=== PATIENT | female | born 1955 | race Caucasian/White ===

== ENCOUNTER 2018-03-24 08:27 | Outpatient (RCR) | payer BC ==
[2017-12-31 09:07] VITALS: BP 130/89
[2017-12-31 09:21] LABS: PLATELET COUNT, AUTOMATED 347 K/uL (150-450)
[2018-03-18 08:53] VITALS: BP 125/78
[2018-03-18 09:07] LABS: PLATELET COUNT, AUTOMATED 297 K/uL (150-450)
[~2018-03-24 08:27] MED LIST: ACET-1935 PO; ALP25 PO; ALPR-429 PO; AMLO-101 PO; Antidepressant PO; BUP150 PO; CLO1 PO; CYAN100T31 PO; CYAN20004 SL; CYAN50TA3 PO; DICL-195 PO; DIP25 PO; DUL30 PO; ESCI20TA38 PO; ESCI20TA8; ESTR0.4513 PO; ESTR0.62 PO; FERR220S20 PO; FIO PO; FLINTSTONE PO; FLU20 PO; FLUO40CA76 PO; GABA-547 PO; HYDR25CA13 PO; IBU800 PO; IRON50TA PO; LEVO1TAB31 PO; LORA-630; LOSA50TA72 PO; LUNESTA; MIL50PT PO; MULT-1032 PO; MULT-885 PO; OMEG-84 PO; PER PO; PRE50 PO; PRED20TA6; PRED20TA6 PO; PREG75CA61 PO; PROVERA; TIZ4 PO; TRAM-627 PO; TRAZ-133 PO; [UNRECOGNIZED DRUG - CODE] PO; [UNRECOGNIZED DRUG - CODE] PO
[2018-03-24 08:31] VITALS: BP 127/86
--- NOTE | 2018-03-25 18:25 | ONCOLOGY FOLLOW UP NOTE ---
EVENT DATE: March 24, 2018 CHIEF COMPLAINT/REASON FOR VISIT Ms. Caban is a pleasant 62-year-old female with iron deficiency anemia here for followup. HISTORY OF PRESENT ILLNESS Tylor returns. She does have moderate fatigue, but is otherwise well. Her ferritin continues to be normal at 40 with no abnormalities with the TIBC. This is very encouraging and indicates that her body is satisfied with the level of iron. Her B12 has been acceptable as well. She has worked with Counseling and 2016 was an extremely challenging time with her sister passing away from schizophrenia. She is having stressors in life as well. PAST MEDICAL AND SURGICAL HISTORY 1. Hypertension. 2. Obesity status post gastric bypass surgery. 3. 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 4. Iron deficiency anemia. 5. History of psychiatric disorder, currently under control. FAMILY HISTORY Remarkable for renal cell carcinoma in her father, psychiatric disease with anxiety in the family as well. SOCIAL HISTORY The patient works at a nearby [employer], is , but presented by herself today. REVIEW OF SYSTEMS CONSTITUTIONAL: No fevers, chills. Positive fatigue. Poor sleep. HEENT: No headache, vision changes. CARDIOVASCULAR: No chest pain, edema. RESPIRATORY: No shortness of breath, wheeze, cough. GASTROINTESTINAL: No nausea, vomiting. GENITOURINARY: No dysuria or hematuria. MUSCULOSKELETAL: No weakness, joint pain. PSYCHIATRIC: Chronic anxiety. SKIN: No new issues. ENDOCRINE: No heat or cold intolerance. PHYSICAL EXAMINATION VITAL SIGNS: Blood pressure 177/86, pulse 66, respiratory rate 16, temperature 98.2 Fahrenheit, oxygen saturation 90% on room air. Pain 6/10, fatigue 5/10. GENERAL: In stable condition, resting comfortably in the chair. HEENT: Normocephalic, atraumatic. EXTREMITIES: No clubbing, cyanosis or edema. PSYCHIATRIC: Normal mood and affect. We had a very pleasant conversation today. Remainder of physical exam deferred today to amount of time spent in counseling and coordination of care. IMPRESSION AND PLAN Ms. Caban a pleasant female with the followin. Iron deficiency anemia secondary to poor absorption related to gastric bypass surgery. She does not require IV iron at this time and she is getting some in her diet. 2. Malabsorption of iron due to the above. 3. Sleep disordered breathing and high anxiety. 4. History of anxiety. She is doing actually well right now. Would recommend continuing counseling. 5. History of gastric bypass. We will need to watch B12. We will check this again at the next visit. I answered all of her questions today. Billing Return visit level 3. Total time 20 minutes, counseling time 15. MTDD
== END 2018-03-27 ==
LOC: ONC 08:27
PROVIDERS: ATTEND Internal Medicine
DX: D50.9 Iron deficiency anemia, unspecified (principal); K90.9 Intestinal malabsorption, unspecified; R53.83 Other fatigue; Z98.84 Bariatric surgery status
CPT/HCPCS: 36415; 82040; 82247; 82310; 82374; 82435; 82565; 82728; 82947; 83540; 83550; 84075; 84132; 84155; 84295; 84450; 84460; 84520; 85025; 99212

== ENCOUNTER 2018-05-15 00:58 | Day surgery (SDC) | payer BC ==
[~2018-05-15] VITALS: Ht 177.8 cm; Wt 108.4 kg
[~2018-05-15 00:58] MED LIST changes: +CYAN25004 PO; +MULT-1335 PO
[2018-05-15] MEDS ORDERED: LIDOCAINE MPF 1% 5 ML VIAL ONE (08:21)
[2018-05-15] MEDS ORDERED: PROPOFOL EMUL(*) 10MG/ML 20 ML 40 ML ONE (08:21)
[2018-05-15 08:29] VITALS: BP 139/93
[2018-05-15] MEDS ORDERED: NORMOSOL R SOLN(*) 1000 ML BAG 1,000 ML IV PRN (09:00)
[2018-05-15] MEDS ORDERED: LIDOCAINE/SOD BICARB 8.4% SYR ID ONE (09:00)
[2018-05-15 10:22] VITALS: BP 119/80
[2018-05-15 10:37] VITALS: BP 126/76
[2018-05-15 10:57] VITALS: BP 140/85
[2018-05-15 10:58] VITALS: BP 135/79
== END 2018-05-15 11:12 | disposition home or self-care (01) ==
LOC: OR 00:58
PROVIDERS: ATTEND Family Medicine
DX: Z12.11 Encounter for screening for malignant neoplasm of colon (principal); I10 Essential (primary) hypertension; G47.33 Obstructive sleep apnea (adult) (pediatric); K58.9 Irritable bowel syndrome, unspecified; M79.7 Fibromyalgia
CPT/HCPCS: 00812; 45378; J2001; J2704

== ENCOUNTER 2018-06-25 16:30 | Emergency (ER) | payer BC ==
[2018-06-25] MEDS ORDERED: cloNIDine HCL 0.1 MG TAB PO ONE (16:45)
--- NOTE | 2018-06-25 16:52 | ER Report ---
History and Physical Time Seen By MD: 16:45 HPI/ROS CHIEF COMPLAINT: Fatigue HISTORY OF PRESENT ILLNESS: 62-year-old female frequent visitor to the emergency department comes in with general fatigue she believed that she had carbon monoxide exposure secondary to a new heater being placed in her home however the EMS evaluation of the portal carbon monoxide shows 0 level that she' s good general fatigue and malaise she has a history of chronic fatigue has a history of fibromyalgia and he'll general nonspecific complaints history of system by mouth well low-energy no pain focal localized no head or neck trauma denies any loss of consciousness denies any neurological deficits or additional complaints noted patient has baseline history also some mild exertional dyspnea otherwise no other complaints noted REVIEW OF SYSTEMS: Respiratory: No cough, no dyspnea. Cardiovascular: No chest pain, no palpitations. Gastrointestinal: No vomiting, no abdominal pain. Musculoskeletal: No back pain. Remainder of the 14 system rev: Yes Allergies: Coded Allergies: No Known Allergies (Verified Allergy, Mild, 06/10/17) Home Meds Active Scripts Amlodipine Besylate (NORVASC) 5 Mg Tablet, 1 TAB PO QDAY for hypertension, #30 TAB Prov:SHELBY RIDLEY REPAIR TECH-BC, ONC 09/11/17 Reported Medications Cyanocobalamin (Vitamin B-12) (Vitamin B12) 2,500 Mcg Tablet, 2000 MG PO 05/09/18 Multivitamin With Minerals (MULTIPLE VITAMIN) 1 Each Tablet, 1 EACH PO, TAB 05/09/18 Escitalopram Oxalate (LEXAPRO) 20 Mg Tablet, 20 MG PO QDAY, TAB 01/24/17 Losartan Potassium (LOSARTAN POTASSIUM) 50 Mg Tablet, 100 MG PO DAILY 09/26/14 Gabapentin (GABAPENTIN) 100 Mg Capsule, 600 MG PO BID, CAPSULE 08/25/14 Bupropion Hcl (WELLBUTRIN-SR (OR EQUIV)) 150 Mg Tabcr, 150 MG PO BID, #30 02/15/12 Trazodone Hcl (Desyrel) 100 Mg Tablet, 150 MG PO QHS, #30 0 Refills 12/04/09 Reviewed Nurses Notes: Yes Old Medical Records Reviewed: Yes Hx Smoking: No Smoking Status: Never Smoker Hx Substance Use Disorder: Yes Hx Alcohol Use: Yes Constitutional Vital Sign - Last 24 Hours 06/25/18 16:45 Temp 97.2 Pulse 66 Resp 20 B/P (MAP) 155/115 Pulse Ox 94 O2 Delivery Room Air Physical Exam General Appearance: The patient is alert, has no immediate need for airway protection and no current signs of toxicity. [ ] Eyes: Pupils equal and round no injection. Respiratory: Chest is non tender, lungs are clear to auscultation. Cardiac: regular rate and rhythm [ ] Gastrointestinal: Abdomen is soft and non tender, no masses, bowel sounds normal. Musculoskeletal: Neck: Neck is supple and non tender. Extremities have full range of motion and are non tender. Skin: No rashes or lesions. [ ] DIFFERENTIAL DIAGNOSIS: After history and physical exam differential diagnosis was considered for general fatigue malaise hypertension Medical Decision Making Data Points Result Diagram: 06/25/18 1643 06/25/18 1643 Laboratory Hematology Test 06/25/18 16:43 Red Blood Count 4.30 M/uL (4.17-5.56) Mean Corpuscular Volume 94.7 fL (80.0-96.0) Mean Corpuscular Hemoglobin 32.6 pg (26.0-33.0) Mean Corpuscular Hemoglobin Concent 34.4 g/dL (32.0-36.0) Red Cell Distribution Width 13.1 % (11.5-14.5) Mean Platelet Volume 6.8 fL (7.2-11.1) Neutrophils (%) (Auto) 62.8 % (39.4-72.5) Lymphocytes (%) (Auto) 27.8 % (17.6-49.6) Monocytes (%) (Auto) 7.4 % (4.1-12.4) Eosinophils (%) (Auto) 1.1 % (0.4-6.7) Basophils (%) (Auto) 0.9 % (0.3-1.4) Nucleated RBC Relative Count (auto) 0.0 /100WBC Neutrophils # (Auto) 4.6 K/uL (2.0-7.4) Lymphocytes # (Auto) 2.0 K/uL (1.3-3.6) Monocytes # (Auto) 0.5 K/uL (0.3-1.0) Eosinophils # (Auto) 0.1 K/uL (0.0-0.5) Basophils # (Auto) 0.1 K/uL (0.0-0.1) Nucleated RBC Absolute Count (auto) 0.00 K/uL D-Dimer Quantitative (PE/DVT) 0.40 ug/ml (0-0.50) Sodium Level 130 mmol/L (137-145) Potassium Level 4.1 mmol/L (3.5-5.0) Chloride Level 98 mmol/L (98-107) Carbon Dioxide Level 24 mmol/L (22-31) Blood Urea Nitrogen 19 mg/dl (7-18) Creatinine 1.30 mg/dl (0.52-1.04) Glomerular Filtration Rate Calc 41.8 Random Glucose 120 mg/dl (75-110) Calcium Level 8.7 mg/dl (8.4-10.2) Total Bilirubin 0.3 mg/dl (0.2-1.3) Aspartate Amino Transf (AST/SGOT) 30 U/L (0-35) Alanine Aminotransferase (ALT/SGPT) 22 U/L (0-56) Alkaline Phosphatase 55 U/L (0-126) Troponin I < 0.012 ng/ml B-Type Natriuretic Peptide 59 pg/ml (0-100) Total Protein 6.6 g/dl (6.3-8.2) Albumin 3.9 g/dl (3.5-5.0) Chemistry Test 06/25/18 16:43 White Blood Count 7.3 k/uL (4.5-11.0) Red Blood Count 4.30 M/uL (4.17-5.56) Hemoglobin 14.0 g/dL (12.0-16.0) Hematocrit 40.7 % (34.0-47.0) Mean Corpuscular Volume 94.7 fL (80.0-96.0) Mean Corpuscular Hemoglobin 32.6 pg (26.0-33.0) Mean Corpuscular Hemoglobin Concent 34.4 g/dL (32.0-36.0) Red Cell Distribution Width 13.1 % (11.5-14.5) Platelet Count 348 K/uL (150-450) Mean Platelet Volume 6.8 fL (7.2-11.1) Neutrophils (%) (Auto) 62.8 % (39.4-72.5) Lymphocytes (%) (Auto) 27.8 % (17.6-49.6) Monocytes (%) (Auto) 7.4 % (4.1-12.4) Eosinophils (%) (Auto) 1.1 % (0.4-6.7) Basophils (%) (Auto) 0.9 % (0.3-1.4) Nucleated RBC Relative Count (auto) 0.0 /100WBC Neutrophils # (Auto) 4.6 K/uL (2.0-7.4) Lymphocytes # (Auto) 2.0 K/uL (1.3-3.6) Monocytes # (Auto) 0.5 K/uL (0.3-1.0) Eosinophils # (Auto) 0.1 K/uL (0.0-0.5) Basophils # (Auto) 0.1 K/uL (0.0-0.1) Nucleated RBC Absolute Count (auto) 0.00 K/uL D-Dimer Quantitative (PE/DVT) 0.40 ug/ml (0-0.50) Glomerular Filtration Rate Calc 41.8 Calcium Level 8.7 mg/dl (8.4-10.2) Total Bilirubin 0.3 mg/dl (0.2-1.3) Aspartate Amino Transf (AST/SGOT) 30 U/L (0-35) Alanine Aminotransferase (ALT/SGPT) 22 U/L (0-56) Alkaline Phosphatase 55 U/L (0-126) Troponin I < 0.012 ng/ml B-Type Natriuretic Peptide 59 pg/ml (0-100) Total Protein 6.6 g/dl (6.3-8.2) Albumin 3.9 g/dl (3.5-5.0) Coagulation Test 06/25/18 16:43 D-Dimer Quantitative (PE/DVT) 0.40 ug/ml ED Course/Re-evaluation ED Course ED clinical course 8-year-old female who was under the impression she may have carbon monoxide poisoning this level was 0 respiratory workup was negative she has had general fatigue malaise nothing came up on her workup EKG chest x-ray Baseline labs cardiac markers respiratory markers all which were negative diagnosis will be Patik Decision to Disposition Date: Jun 25, 2018 Decision to Disposition Time: 17:39 Depart Departure Latest Vital Signs Vital Signs Date Time Temp Pulse Resp B/P (MAP) Pulse Ox O2 Delivery O2 Flow Rate FiO2 06/25/18 16:45 97.2 66 20 155/115 94 Room Air Impression: Primary Impression: Fatigue Condition: Improved Disposition: HOME OR SELF-CARE Referrals: CHICHI WISDOM MD (PCP) 5 Days Patient Instructions: Fatigue (DC) ANGELIA AUGUSTINE MD Jun 25, 2018 16:52
[2018-06-25 16:56] LABS: PLATELET COUNT, AUTOMATED 348 K/uL (150-450)
--- NOTE | 2018-06-25 17:02 | EKG ---
FACILITY: [facility] [place]IENT NAME: LON RICHARD : [id number] MR: [id number] V: [id number] EXAM DATE: ORDERING PHYSICIAN: ANGELIA AUGUSTINE TECHNOLOGIST: Test Reason : SOB Blood Pressure : / mmHG Vent. Rate : 063 BPM Atrial Rate : 063 BPM P-R Int : 174 ms QRS Dur : 084 ms QT Int : 414 ms P-R-T Axes : 041 007 045 degrees QTc Int : 423 ms Sinus rhythm Borderline left axis Nonspecific ST findings When compared with ECG of 25-JUN-2016 10:50, No significant change was found Confirmed by FELISHA ARRIAGA ([id number]) on 06/25/2018 5:21:16 PM Referred By: Confirmed By:FELISHA ARRIAGA
[2018-06-25 17:30] VITALS: BP 135/91
--- NOTE | 2018-06-25 17:36 | RADIOLOGY IMAGING REPORT ---
FACILITY: [facility] PATIENT NAME: Tylor Caban : 1955 MR: [id number] V: [id number] EXAM DATE: ORDERING PHYSICIAN: ANGELIA AUGUSTINE TECHNOLOGIST: Location: [facility] - [place] Patient: Tylor Caban : 1955 Visit/Account:[id number] Date of Sevice: 06/25/2018 2 VIEWS CHEST INDICATION: Shortness of breath. COMPARISON: 09/26/2014. FINDINGS: Cardiomediastinal silhouette and pulmonary vessels within normal limits. There is no focal infiltrate or lobar consolidation. There is no pneumothorax or pleural effusion. No nodule. Upper abdomen is unremarkable. No acute bony abnormality. IMPRESSION: 1. No acute cardiopulmonary process. Report Dictated By: Goran Potts at 06/25/2018 5:26 PM Report E-Signed By: Goran Potts at 06/25/2018 5:31 PM WSN:[id number]
== END 2018-06-25 17:55 | disposition home or self-care (01) ==
LOC: ER 16:41
DX: R53.83 Other fatigue (principal); R06.09 Other forms of dyspnea
CPT/HCPCS: 71046; 82040; 82247; 82310; 82374; 82435; 82565; 82947; 83880; 84075; 84132; 84155; 84295; 84450; 84460; 84484; 84520; 85025; 85379; 93005; 99284